=== PATIENT | male | born 1965 | race Caucasian/White ===

== ENCOUNTER 2016-06-12 14:26 | Emergency (ER) | payer MEDICAID, OTHER ==
[~2016-06-12] VITALS: Ht 182.9 cm; Wt 104.5 kg
[2016-06-12 14:33] VITALS: BP 152/89; PULSE 91; RESP 16; O2SAT 99
--- NOTE | 2016-06-12 19:26 | ED.REPORT ---
HPI-Psychiatric Illness Date of Service Jun 12, 2016 ED Provider: Rahul Escobedo MD 50 year old male with a history of depression presents to the ER due to suicidal ideation with a plan to kill himself by overdose or with a knife/ sword. He states that he has been having suicidal thoughts for the past several months, worsening over the past few weeks, but that he has been severely depressed for the past year and a half due to the loss of his therapy dog, the loss of his job, and homelessness. Patient also reports having trust issues with the people in his life because they "always have ulterior motives". In the past he has had suicidal ideations, at which time he was seen here then referred to crisis respite. Patient denies history of suicidal attempt, and current alcohol use, though he admits to THC use on a limited basis. 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 Recently he has had "the flu", cough, sneezing, and diarrhea with brief episode of bright red blood. No PCP. Nursing Notes Stated Complaint: SUICIDAL Chief Complaint: Psychiatric Complaint Nursing Notes Reviewed: Yes Allergies: Coded Allergies: Penicillins (Unverified Allergy, Severe, Hallucinations, 04/22/15) General Time Seen by MD: 19:22 Chief Complaint Suicidal ideation Hx Obtained From: Patient Arrived By: Walk-in Onset Occurred: More than a week ago... ("several months") Associated with: Reports: Depression Related History: Reports: Alcohol abuse, Depression, Denies: Prior suicide attempt(s) Risk-Psychiatric Illness Suicide Risk Stratification Suicide Risk Factors - Adult: No: Alcohol use, Previous attempt RF Statements: Risk factors reviewed Past Medical History Past Medical History Reports: Hypertension Reports: Depression Past Surgical History Denies Smoking History Unknown if Ever Smoker Social History Alcohol Use: In recovery Drug Use: THC Ambulatory Status Independent Review of Systems Psychiatric: Reports: Depression, Suicidal ideation, Denies: Change mental status, Confusion, Hallucinations, auditory, Hallucinations, visual, Homicidal ideation Complete sys rev & neg: except as marked. Physical Exam Initial Vital Signs Vital Signs (First) Date Time Temp Pulse Resp B/P Pulse Ox O2 Delivery O2 Flow Rate FiO2 06/12/16 14:33 36.4 91 16 152/89 99 Room Air Initial VS: Reviewed Head / Eyes: Atraumatic, Normocephalic Neck: Supple, Non-tender, Full range of motion Respiratory: Breath sounds normal, Clear to auscultation, No respiratory distress Cardiovascular: Regular rate & rhythm, Heart sounds normal, Intact distal pulses Abdomen / GI: Soft, Non-tender, No guarding, No rebound, No distention Extremities: Vascular intact, Neuro intact, No swelling, No tenderness Skin: Warm, Dry, No cyanosis General/Constitutional: Awake, Alert, Well developed, Well nourished Neurologic: Oriented X3, Speech NL, No motor deficits, No sensory deficits, Memory NL Psychiatric: Not homicidal, Cognitive function NL Abnormal Thinking / Perception: Positive: Suicidal, with plan Interpretation & Diagnostics Lab Results Interpretation Result Diagram: 06/12/16202106/12/162021 Test 06/12/16 20:22 White Blood Count 8.5th/mm3 (3.8-10.1) Red Blood Count 5.18mil/mm3 (4.40-5.80) Hemoglobin 15.0g/dL (13.8-17.2) Hematocrit 44.7% (41.0-50.0) Mean Corpuscular Volume 86.3fL (81-100) Mean Corpuscular Hemoglobin 29.0pg (27.0-35.0) Mean Corpuscular Hemoglobin Concent 33.6% (32.0-37.0) Red Cell Distribution Width 12.9% (12.3-15.4) Platelet Count 227bil/L (150-400) Neutrophils (%) (Auto) 54.8% (40-74) Lymphocytes (%) (Auto) 35.2% (14-46) Monocytes (%) (Auto) 8.0% (4-12) Eosinophils (%) (Auto) 1.4% (0-5) Basophils (%) (Auto) 0.5% (0-3) Sodium Level 141mEq/L (134-144) Potassium Level 3.5mEq/L (3.5-5.2) Chloride Level 107mEq/L (97-108) Carbon Dioxide Level 22mmol/L (18-29) Blood Urea Nitrogen 20mg/dL (6-24) Creatinine 0.99mg/dL (0.76-1.27) Estimat Glomerular Filtration Rate 86mL/min (>59) Glucose Level 120mg/dL (60-99) Calcium Level 8.5mg/dL (8.5-10.1) Total Bilirubin 0.2mg/dL (0.0-1.2) Aspartate Amino Transf (AST/SGOT) 21U/L (0-50) Alanine Aminotransferase (ALT/SGPT) 18U/L (0-44) Alkaline Phosphatase 68U/L (25-150) Total Protein 5.9g/dL (6.4-8.4) Albumin 3.7g/dL (3.4-5.0) Thyroid Stimulating Hormone (TSH) 2.950uIU/mL (0.450-4.500) Hold Barnard Top Tube Received (Received) Re-Eval/Medical Decision Med Decision/Clinical Course Crisis respite is full, our [facility] is also full. Patient does not feel safe to go home. He says that a next-day appointment is not sufficient that he does not feel like he will be safe leaving the department. We will keep him in the department overnight and workup again in the morning. Dr. Webster will assume care from midnight to 6 AM. Source of Hx: Old records Re-Evaluation/Progress #1: Time of Eval: 20:05 Re-Evaluation/Progress Note: I offered the patient a next-day appointment. He does not feel safe at home and is concerned that he will harm himself. Re-Evaluation/Progress #2: Time of Eval: 21:22 Re-Evaluation/Progress Note: Updated patient on the plan to board in the ER overnight. Patient is amenable to the plan and agrees not to harm himself. Discharge & Departure Impression: Primary Impression: Suicidal thoughts Additional Impression: Depression Depression Type: major depressive disorder Major depression recurrence: recurrent Active/Remission status: remission status unspecified Qualified Code: F33.9 - Major depressive disorder, recurrent, unspecified Discharge Condition All VS Reviewed: Yes Condition: Stable Referrals: NOPCP (PCP) Care Transferred to: [facility] Transferred at: 21:29 Nilesh Attestation Portions of this note were transcribed by Jermaine Hi. I, Dr. Escobedo, personally performed the history, physical exam and medical decision-making; I reviewed and confirmed the accuracy of the information in the transcribed note. Signed by: Nilesh Patel, 06/12/2016 and 2127 Rahul Escobedo MD Jun 12, 2016 19:26 JERMAINE HI Jun 12, 2016 19:35
[2016-06-12 19:50] VITALS: BP 169/100; PULSE 65; RESP 20; O2SAT 98
[2016-06-12] MEDS ORDERED: LORazepam 2 mg Tablet PO ONE (20:15)
[2016-06-12 20:31] LABS: BASOPHILS % (AUTO) 0.5 % (0-3); EOSINOPHILS % (AUTO) 1.4 % (0-5); Mean Corpuscular Volume 86.3 fL (81-100); NEUTROPHILS % (AUTO) 54.8 % (40-74); Platelet Count 227 bil/L (150-400)
[2016-06-13 02:32] VITALS: BP 152/101; PULSE 60; RESP 16; O2SAT 99
[2016-06-13 05:57] VITALS: BP 177/92; PULSE 72; RESP 18; O2SAT 98
[2016-06-13 15:30] VITALS: BP 148/83; PULSE 78; RESP 16; O2SAT 98
[2016-06-13 17:33] VITALS: BP 146/84; PULSE 75; RESP 14; O2SAT 96
[2016-06-13 17:44] VITALS: BP 146/84; PULSE 75; RESP 14; O2SAT 96
== END 2016-06-13 17:45 | disposition other institution (70) ==
LOC: SED 14:26
DX: F32.9 Major depressive disorder, single episode, unspecified (principal); R45.851 Suicidal ideations; Z88.0 Allergy status to penicillin

== ENCOUNTER 2016-06-19 14:26 | Emergency (ER) | payer OTHER ==
[~2016-06-19] VITALS: Ht 182.9 cm; Wt 102.3 kg
[2016-06-19 14:29] VITALS: BP 204/98; PULSE 97; RESP 18; O2SAT 99
[2016-06-19] MEDS ORDERED: CROM40SP NS (14:38)
--- NOTE | 2016-06-19 16:05 | ED.REPORT ---
HPI-Psychiatric Illness Date of Service Jun 19, 2016 ED Provider: Hellen Marie History of Present Illness: going to crisis center today has been cleared by phone. recently released from [facility] yesterday. Homeless Nursing Notes Stated Complaint: DEPRESSION, SUICIDAL Chief Complaint: Psychiatric Complaint Nursing Notes Reviewed: Yes Allergies: Coded Allergies: Penicillins (Unverified Allergy, Severe, Hallucinations, 06/19/16) Miscellaneous Medications Cromolyn Sodium (Nasal Allergy [place]) 13 Ml [place].pump 13 ML NS General Time Seen by MD: 15:54 Chief Complaint Other (homeless) Hx Obtained From: Patient Symptom Duration: Since onset Risk-Psychiatric Illness Suicide Risk Stratification Suicide Risk Factors - Adult: : Close associate suicide (friend comminted suicide about 4 years ago): Previous attempt (20 years ago, per his report had a gun in his mouth but could not pull the trigger): Substance abuse (THC was drug of choice, hx of crank and meth use but not recent per his report. )No: Access to firearms, Alcohol use, Family Hx of Suicide, Prior psych admission RF Statements: Risk factors reviewed Past Medical History Past Medical History Reports: Hypertension Reports: Depression Past Surgical History Denies Smoking History Unknown if Ever Smoker Social History Alcohol Use: In recovery Drug Use: THC Other Social History: Homeless Ambulatory Status Independent Review of Systems Basic Review of Systems Eyes: Vision NL, No discharge Allergy / Immune: No allergy Physical Exam Physical Exam Notes: when examined, patient is in chair 2 visiting with his neighbor, reporting "the lady next cheered him up" denies SI at this time Initial Vital Signs Vital Signs (First) Date Time Temp Pulse Resp B/P Pulse Ox O2 Delivery O2 Flow Rate FiO2 06/19/16 14:29 36.4 97 18 204/98 99 Room Air Initial VS: Reviewed, Vital signs abnormal Head / Eyes: Atraumatic, Normocephalic, PERRL ENT: Mucous membranes moist, Conjunctiva normal, No scleral icterus Neck: Supple, Non-tender, Full range of motion Respiratory: Breath sounds normal, Clear to auscultation, No respiratory distress Cardiovascular: Regular rate & rhythm, Heart sounds normal, Intact distal pulses Abdomen / GI: Soft, Non-tender, No guarding, No rebound, No distention Back: No CVA tenderness Lymphatic: No lymphadenopathy Extremities: Vascular intact, Neuro intact, No swelling, No tenderness Skin: Warm, Dry, No cyanosis General/Constitutional: Awake, Alert, No acute distress, Well appearing, Well developed, Well hydrated, Well nourished, Cooperative, Not toxic appearing Neurologic: Oriented X3, Speech NL, No motor deficits Psychiatric: Affect NL, Mood NL, Not suicidal Head / Eyes: Atraumatic, Normocephalic, PERRL, EOMI ENT: Atraumatic, Airway patent, Mucous membranes moist, Pharynx NL Respiratory / Chest: Atraumatic, Breath sounds NL, Breath sounds = bilat, No respiratory distress Cardiovascular: Heart rate NL, Regular rhythm, Heart sounds NL Abdomen: Atraumatic, Soft, Non-tender Interpretation & Diagnostics Lab Results Interpretation Test 06/19/16 15:25 Hold Urine Received (Received) Re-Eval/Medical Decision Med Decision/Clinical Course 50 year old male presents to the ER for homelessness. [facility] but not till 1 am. Does not take anything for his HTN. Provided metroprolol 50 mg, blood pressure has come down. Will provide script for same. Patient has been provided dinner and is awaiting transport. Care turned over to Dr. Webster. Discharge & Departure Impression: Primary Impression: Acute situational disturbance Additional Impression: High blood pressure Hypertension type: essential hypertension Additional Instructions: You have been accepted at Crisis [facility]. They will take you at 1 am. Your blood pressure has come down nicely with the blood pressure medication . A prescription has been provided for you. Please work on getting into housing and establishing in primary care. Referrals: [facility] EDSupervising Provider for APC: Prateek Cotto MD copies to: [facility] Hellen Marie Jun 19, 2016 16:05
[2016-06-19 17:18] VITALS: BP 173/102; PULSE 74; RESP 16; O2SAT 99
[2016-06-19 18:59] VITALS: BP 159/86; PULSE 60; RESP 14; O2SAT 96
[2016-06-20 00:31] VITALS: BP 138/87; PULSE 58; RESP 18; O2SAT 99
== END 2016-06-20 00:50 | disposition home or self-care (01) ==
LOC: SED 14:26
DX: F43.0 Acute stress reaction (principal); I10 Essential (primary) hypertension; Z59.0 Homelessness; Z88.0 Allergy status to penicillin

== ENCOUNTER 2016-07-11 14:56 | Inpatient (IN) | payer MEDICAID, OTHER ==
[~2016-07-11] VITALS: Ht 182.9 cm; Wt 104.5 kg
[~2016-07-11 14:56] MED LIST: CROM40SP NS
[2016-07-11 15:00] VITALS: PULSE 87; RESP 16; O2SAT 97
--- NOTE | 2016-07-11 16:07 | ED.REPORT ---
HPI-Psychiatric Illness Date of Service Jul 11, 2016 ED Provider: Chino Murillo Patient is a 50 year old male who presents to the ED complaining of suicidal ideation. He states that he is "tired of trying" and "would like to just ". He has no further complaints at this time. He denies homicidal ideations, hallucinations, or any other symptoms. Nursing Notes Stated Complaint: DEPRESSED Chief Complaint: Psychiatric Complaint Nursing Notes Reviewed: Yes Allergies: Coded Allergies: Penicillins (Unverified Allergy, Severe, Hallucinations, 07/11/16) Miscellaneous Medications Cromolyn Sodium (Nasal Allergy [place]) 13 Ml [place].pump 13 ML NS General Time Seen by MD: 16:07 Chief Complaint Suicidal ideation Hx Obtained From: Patient Arrived By: Walk-in Risk-Psychiatric Illness Suicide Risk Stratification Suicide Risk Factors - Adult: : Substance abuseNo: Alcohol use RF Statements: Risk factors reviewed Past Medical History Past Medical History Reports: Hypertension Reports: Depression Past Surgical History Denies Smoking History Unknown if Ever Smoker Social History Alcohol Use: In recovery Drug Use: THC Other Social History: Smokeless tobacco, Homeless Ambulatory Status Independent Review of Systems Psychiatric: Reports: Depression, Suicidal ideation, Denies: Hallucinations, auditory, Hallucinations, visual, Homicidal ideation Complete sys rev & neg: except as marked. Physical Exam Initial Vital Signs Vital Signs (First) Date Time Temp Pulse Resp B/P Pulse Ox O2 Delivery O2 Flow Rate FiO2 07/11/16 15:00 36.0 87 16 97 Room Air 07/11/16 20:56 133/61 Initial VS: Reviewed Head / Eyes: Atraumatic, Normocephalic Neck: Full range of motion Respiratory: No respiratory distress Cardiovascular: Regular rate & rhythm, Heart sounds normal Abdomen / GI: Soft, Non-tender Skin: Warm, Dry General/Constitutional: Awake, Alert, Well developed Neurologic: Oriented X3, Speech NL Psychiatric: Not homicidal Abnormal Thinking / Perception: Positive: Suicidal, no plan Jittery Interpretation & Diagnostics Lab Results Interpretation Result Diagram: 07/11/16 1633 07/11/16 1633 Test 07/11/16 16:33 07/11/16 19:10 White Blood Count 5.2th/mm3 (3.8-10.1) Red Blood Count 4.45mil/mm3 (4.40-5.80) Hemoglobin 13.0g/dL (13.8-17.2) Hematocrit 39.1% (41.0-50.0) Mean Corpuscular Volume 87.9fL (81-100) Mean Corpuscular Hemoglobin 29.2pg (27.0-35.0) Mean Corpuscular Hemoglobin Concent 33.2% (32.0-37.0) Red Cell Distribution Width 13.5% (12.3-15.4) Platelet Count 181bil/L (150-400) Neutrophils (%) (Auto) 65.2% (40-74) Lymphocytes (%) (Auto) 19.8% (14-46) Monocytes (%) (Auto) 12.1% (4-12) Eosinophils (%) (Auto) 2.5% (0-5) Basophils (%) (Auto) 0.2% (0-3) Sodium Level 136mEq/L (134-144) Potassium Level 3.6mEq/L (3.5-5.2) Chloride Level 99mEq/L (97-108) Carbon Dioxide Level 22mmol/L (18-29) Blood Urea Nitrogen 17mg/dL (6-24) Creatinine 0.98mg/dL (0.76-1.27) Estimat Glomerular Filtration Rate 87mL/min (>59) Glucose Level 131mg/dL (60-99) Calcium Level 8.4mg/dL (8.5-10.1) Total Bilirubin 0.4mg/dL (0.0-1.2) Aspartate Amino Transf (AST/SGOT) 27U/L (0-50) Alanine Aminotransferase (ALT/SGPT) 26U/L (0-44) Alkaline Phosphatase 63U/L (25-150) Total Protein 5.9g/dL (6.4-8.4) Albumin 3.4g/dL (3.4-5.0) Thyroid Stimulating Hormone (TSH) 0.863uIU/mL (0.450-4.500) Hold Barnard Top Tube Received (Received) Hold Urine Received (Received) Lab Results Interpretation: Urine tox. positive for THC and meth. Re-Eval/Medical Decision Med Decision/Clinical Course Social work recommends that we hold patient overnight and evaluate in the morning. 23:28: Mr. baker is resting comfortably. Irap-ea-tmkg evaluation completed. Care will be endorsed to Dr. Peters. Our hospital social worker will reevaluate him in the morning and determine if placement as needed or if this is psychiatric symptoms are related to his methamphetamine abuse. Discharge & Departure Shift Change Sign-Out Patient Care Transferred: Yes Discussed Complaint(s): Yes Response to Therapy: Improved Additonal Information: Transfer of care to Dr. Peters at 0000 Impression: Primary Impression: Methamphetamine abuse Additional Impression: Acute situational disturbance Referrals: NOPCP (PCP) Care Transferred to: Dr. Peters Care Transferred at: 00:00 Scribe Attestation Portions of this note were transcribed by Zakiya Dowell. I, Dr. Murillo personally performed the history, physical exam and medical decision-making; I reviewed and confirmed the accuracy of the information in the transcribed note. Signed by: Zakiya Dowell 07/12/16, 0000 Chino Murillo DO Jul 11, 2016 16:07 ZAKIYA DOWELL Jul 11, 2016 17:33
[2016-07-11 16:57] LABS: BASOPHILS % (AUTO) 0.2 % (0-3); EOSINOPHILS % (AUTO) 2.5 % (0-5); MONOCYTES % (AUTO) 12.1 % (4-12); Mean Corpuscular Hemoglobin 29.2 pg (27.0-35.0); Mean Corpuscular Volume 87.9 fL (81-100); NEUTROPHILS % (AUTO) 65.2 % (40-74); Platelet Count 181 bil/L (150-400)
[2016-07-11 20:56] VITALS: BP 133/61; PULSE 95; RESP 20; O2SAT 96
[2016-07-12 06:35] VITALS: BP 116/72; PULSE 84; RESP 18; O2SAT 97
[2016-07-12 13:06] VITALS: BP 149/81; PULSE 79; O2SAT 98
[2016-07-12] MEDS ORDERED: Alum-Mag Hydrox-Simeth 30 mL Suspension PO PRN ×2 (14:05→20:05)
[2016-07-12] MEDS ORDERED: Ondansetron 2 mg/mL 2 mL Inj IVPUSH PRN (14:05)
--- NOTE | 2016-07-12 16:48 | NUR ---
[id number]. nurs. Admit note. 50 y.o. male pt admitted to [facility] [place] [facility] ED at 1436. Pt stating greatest concern is "there's someone out there trying to mess with me, and no one believes me, probably be waiting for me when I get out of here, this has been going on for 61/2 yrs and no one believes me, tired of going on like this I would rather be " Pt reports has no social support ,not talking to 2 brothers the last of family. Pt reports cannot return to prev derelict housing with rats and mould and has been trying to sleep in corners of buildings and has bruises and scrapes from falling down when falls asleep. Pt reports depression of 10/10 and risk of making SA 8-10/10 if discharged. Pt states living on food stamps and little earnings. Pt states using MJ weekly and used meth once in last 11/2 yrs. Pt reports has never actually encountered "enemies" that have ruined and continue to ruin his life but firmly convinced that they are real. Pt denies hallucinations. Pt seeking safety and rest unable to identify exactly what he hopes to gain from hospitalization except to be stronger when leaves to deal with enemies. 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 in admit process. Pt reports meds from [facility] in [place] and HTN med from [facility].
--- NOTE | 2016-07-12 18:21 | NUR ---
S Day Shift Pt admitted to the unit at approx 14:36. Pt completed the admission process without incident. Pt acclimated to the unit without incident, preferring to remain in his room for the majority of the shift. Pt is appropriate with staff and peers when active on the unit, but is not social. Pt attended dinner in the evening and ate approx 100% of meal.
[2016-07-12] MEDS ORDERED: METO50TA3 PO (18:43)
[2016-07-12] MEDS ORDERED: Magnesium Hydroxide 10 mL Oral Concentration PO PRN (20:05)
[2016-07-12] MEDS ORDERED: LORazepam 1 mg Tablet PO PRN (20:05)
--- NOTE | 2016-07-13 05:21 | NUR ---
nursing, nights, 11-7 s/o- has appeared to sleep after 1730 during q 15 minute assessments. a- no apparent distress. p- monitor behavior/emotional state, quality, times and amount of sleep, use and effect of medication. wyatt
[2016-07-13 10:17] VITALS: BP 134/85; PULSE 79; RESP 16
--- NOTE | 2016-07-13 13:11 | NUR ---
Nursing Day Shift- S/O- Pt. appeared asleep at the start of the day shift. He jonatan briefly and eat 100%. He appeared flat and sullen, then returned to bed. He has appeared asleep other then getting up for lunch. A- Catching up on lost sleep during period of homelessness. Methamphetamine after affects. P- Monitor and evaluate when rested. Cont. BHTP.
[2016-07-13] MEDS ORDERED: CROMOLYN SODIUM NOSTRIL SCH (13:25)
--- NOTE | 2016-07-13 14:17 | HP ---
[address] [address] HISTORY AND PHYSICAL PATIENT: ROGERIO CORNEJO : 1965 MR#: [id number] ADMIT: 07/12/2016 JOB ID: [id number] IDENTIFICATION OF PATIENT: The patient is a 50-year-old male admitted through the emergency department with significant increasing factors of depression and suicidal ideation. He reportedly has also had significant concerns of paranoia with positive u. tox testing for methamphetamine and THC. CHIEF COMPLAINT: "I am tired of living this way, I am tired of having to start over and over and over." HISTORY OF PRESENT ILLNESS: As stated above, the patient is a 50-year-old male who reportedly was admitted through the emergency department with significant suicidal ideation with intent and plan to overdose. The patient reportedly tested positive for urine drug screen for methamphetamine and THC and was allowed to sober up overnight. Reportedly, the patient, however, identified that he has not used methamphetamine knowingly over the past year to year and a half and that his last drink of alcohol was greater than five years. He would not elaborate on his usage of marijuana. In meeting with the patient, he was quite tearful, distraught. Indicated that he is currently homeless, living in a camper in [place]. He indicates that there are many rats in his home that basically will crawl all over him when he is sleeping. He identified that he has not showered for many days upon weeks and that he reportedly was recently hired by a [employer] and had significant negative interactions with his boss and was fired. The patient reports he is having significant difficulties with feelings of hopelessness, worthlessness, indicating that he might as well . He reportedly stated to the emergency department nephrology social worker that he wanted a lobotomy. He reports that he was recently seen by a free clinic, [facility] in [place], and he was initiated on medication. He reports that he has a child welfare caseworker, identified as Alma. In reviewing his factors of depression, he openly admitted to feelings of anergia, anhedonia, delays of concentration, limited sleep, decreased appetite, symptoms of suicidal ideation with intent and plan. He also has significant paranoia, questionable delusional presentation on approach. PAST MEDICAL HISTORY: Substantial for allergy to PENICILLIN. His current medications include: 1. Metoprolol 50 mg b.i.d. 2. Cromolyn sodium nasal spray. 3. He also indicated that he was started on antidepressant but is unaware of the name. He denies any recent history of surgeries or fractures. Other medical history was reviewed through the emergency department and I agree with findings. PAST PSYCHIATRIC HISTORY: Substantial for initiation of services with [facility]. He does have a child welfare caseworker, identified as Alma. He was also initiated on antidepressant but is unaware of the name of the medication. He denies any prior history of psychiatric involvement. Denies any history of chemical dependency treatment. SOCIAL HISTORY: Currently, the patient is living independently. He denies any previous marriage, no children. He reportedly was born and raised in [place] and attended high school up until the 11th grade and dropped out. He pursued no GED or followup education at that time. FAMILY HISTORY: Negative for mental health or chemical dependency issues. DEVELOPMENT HISTORY: As noted above. MENTAL STATUS EXAMINATION: General appearance: The patient is dressed in scrub attire. He is malodorous and apologizes for such. His speech is of normal tone, frequency, and volume. His mood is depressed. His affect is congruent. His thought process shows no evidence of racing thoughts, flight of ideas, loose or disconnected thinking. Thought content: He denied any evidence of expressed homicidal ideation. He does have the above suicidal ideation with intent and plan of taking an overdose. He denies any active hallucinations, but does appear to be quite delusional in reference to his recent firing from his boss at the [employer]. He was alert, oriented to time and place. Attention and concentration intact. Memory intact in the short term, intermediate, recent. Insight and judgment are poor. IMPRESSIONS: [place] I. 1. Major depressive disorder with psychotic features. 2. Methamphetamine use disorder. 3. Cannabis use disorder, [place] II. Deferred. [place] III. History of hypertension [place] IV. Stressors are noted for economic difficulties, status of homelessness, limited support system. [place] V. Global Assessment of Functioning current 30. PLAN: 1. Recommendations for continuation of metoprolol and nasal spray. 2. Clarification of antidepressant initiated through [facility]. 3. Continuation of hospitalization with clarification of SHONA status.
--- NOTE | 2016-07-13 17:55 | NUR ---
[facility] Day Shift Pt maintained behavioral control throughout the shift. Pt affect appears flat. Pt spends the majority of the shift resting/sleeping in his room, only entering the dining room to attend meals and inquire about medication. Pt is appropriate with staff and peers when active on the unit, but is not social. Pt did not attend community meeting in the AM. Pt attended all meals and ate approx 100% of all meals.
--- NOTE | 2016-07-13 23:08 | NUR ---
Nurses Note Evening Patient has been pleasant upon approach with a blunted affect and depressed mood. His thoughts were clear,organized and reality based however superficial. He c/o cold symptoms and sinus problems,fluids encouraged and nasal spray ordered for am. Will encourage verbalization of thoughts and feelings with improved insight and coping skills. Addendum: 07/13/16 at 2317 by ELOISE CHIANG RN Amended: Links added.
--- NOTE | 2016-07-14 05:32 | NUR ---
nursing, nights, 11-7 s/o- has appeared to sleep after 2129 during q 15 minute assessments. a- no apparent distress. p- monitor behavior/emotional state, quality, times and amount of sleep, use and effect of medication. wyatt
[2016-07-14] MEDS: Fluticasone 0.05% 15 Spray/2 Gm 16 Gm Nasal Spray NASAL SCH (09:30)
[2016-07-14 11:44] VITALS: BP 138/91; PULSE 58; RESP 20
--- NOTE | 2016-07-14 15:14 | PCM.PNPSY ---
Subjective Date of Service Jul 14, 2016 Subjective I spent 30 minutes both reviewing his treatment plan and providing supportive and educational psychotherapy. I spent more than 50% of the time counseling the patient. I reviewed the treatment plan with the patient and discussed options available including the potential risks, benefits and side effects. Gera reports extreme dysphoria, hopelessness, helplessness and suicidal ideation with a plan to overdose. The Staff reports that he has been a split of sleeping in his room and is not participating well in one-to-one unit and group activities. He slept 8.75 hours. He is on no medications. I reviewed with him the different medication options. He appeared to understand the need for medications by the questions he asked during our discussion. Current Medications Current Medications Fluticasone Propionate 2 spray DAILY NASAL Last administered on 07/14/16 09:30; Admin Dose 2 SPRAY; Start 07/14/16 at 08:30 Metoprolol Tartrate 50 mg BID PO Last administered on 07/14/16 09:08; Admin Dose 50 MG; Start 07/12/16 at 20:30 Zolpidem Tartrate Start with 5 mg and may rep... HS PRN PO Last administered on 07/13/16 20:30; Admin Dose 5 MG; Start 07/12/16 at 20:05 Mental Status Exam Vital Signs Vital Signs Date Time Temp Pulse Resp B/P Pulse Ox O2 Delivery O2 Flow Rate FiO2 07/14/16 11:44 36.5 58 20 138/91 Appearance: Disheveled Attitude: Pleasant, Cooperative Behavior: No unusual behavior Affect: Well Modulated/Appropriate Mood: Dysthymic, Depressed Thought Process/Associations: Logical/Sequential, Goal Directed Speech Production: Normal Speech Rate: Normal Speech Articulation: Normal Thought Content: Appropriate Danger to Self/Suicidal Ideati: Active, Plan, Intent Danger to Others: None Delusions: Paranoid (Endorses) Consciousness: Somnolent, Lethargic Orientation: Person, Place, Date, Situation Memory: Grossly Intact Estimate Intellectual Function: Average Attention/Concentration & Cogn: Impaired Insight: Good Judgement: Limited Result Diagram: 07/11/16 1633 07/11/16 1633 Mental Health Plan The patient is a 50-year-old male admitted through the emergency department with significant increasing factors of depression and suicidal ideation. He reportedly has also had significant concerns of paranoia with positive u. tox testing for methamphetamine and THC. He was admitted with significant suicidal ideation with intent and plan to overdose. The patient reportedly tested positive for urine drug screen for methamphetamine and THC and was allowed to sober up overnight. Reportedly, the patient, however, identified that he has not used methamphetamine knowingly over the past year to year and a half and that his last drink of alcohol was greater than five years. Yesterday he was quite tearful, distraught. He is currently homeless, living in a camper in [place]. He indicates that there are many rats in his home and it is difficult to sleep. He identified that he has not showered for many days upon weeks and that he reportedly was recently hired by a [employer] and had significant negative interactions with his boss and was fired. The patient reports he is having significant difficulties with paranoia, feelings of hopelessness, worthlessness, indicating that he might as well . Today he stating he is feeling less suicidal but more exhausted and irritable. He was not started on medications at admission but is open to Treatment with an antidepressant and an antipsychotic. [place] I. 1. Major depressive disorder with psychotic features. 2. Methamphetamine use disorder. 3. Cannabis use disorder, [place] II. Deferred. [place] III. History of hypertension [place] IV. Stressors are noted for economic difficulties, status of homelessness, limited support system. [place] V. Global Assessment of Functioning current 35. Medications Treatments Patient is being provided with a high degree of safety through the structure and active adult engagement. We will focus on developing improved coping skills and identifying stressors that may have led to current episode. We will attempt to: Integrate into therapeutic groups, milieu and individual therapy. Maintain in a closely monitored and structured unit Provide low-stimulation environment Obtain collateral data to assist in treatment planning Assess degree of lability of affect and impulse control Complete safety plan Decrease frequency of relapse and need for re-hospitalization Denies thoughts of harm to self Establish a consistent sleep pattern Medication effective in stabilization of mood and/or thought process Reduce the risk of imminent harm to self and/or others by providing a safe environment Tolerates medication without side effects Patient will be on the following psychiatric medications: Patient on no medications since admission, will start combination of Cymbalta and Seroquel today Cymbalta 20 mg daily Seroquel 50 mg at bedtime Education: Educate patient about recreational drug use as an etiology Commend 90 NA meetings in days legal status: Voluntary Disposition: Homeless patient stays in a tent in the [facility]. Tex Toledo MD Jul 14, 2016 15:14
[2016-07-14] MEDS: DULoxetine 20 mg DR Capsule PO SCH (16:01)
--- NOTE | 2016-07-14 16:36 | NUR ---
Box Spring Maker./ c.m. S.:"I'm alright." O.: met with pt. to discuss his progress. He "didn't sleep well last night. I have problem sleeping for a long time. I have sleep apnea and I didn't have medications for sleep yesterday." Pt. said that he talked to MD about his sleeping issue and he would try a sleeping aid tonight. He spent most of the day in his room sleeping. He admitted having SI, but he said that he contracted for safety and he would keep his word. He denied HI. He couldn't describe his mood. He was wondering about a menu for dinner tonight but brief writer couldn't provide that information. A.: pt. is isolative, cooperative, quiet, sleeping a lot. P.: monitor behavior, encourage pt. to attend unit activities, provide safety; follow care plan.
--- NOTE | 2016-07-14 17:10 | NUR ---
Observations 0700 to 1900 Pt maintained behavioral control throughout the shift. During the morning pt was morose, teary, isolative. Did not attend morning groups. Pt set daily goal to 'make it through the day without hurting myself." However, after lunch pt affect changed and pt became significantly brighter. Pt showered and seemed to enjoy conversing with peers in Dining room in afternoon. Pt ate 90-100% of breakfast and lunch and was observed every 15 minutes as ordered.
--- NOTE | 2016-07-14 18:16 | NUR ---
NURS Note [id number] Orientation: x3 Mood: "I'm just so lonely." Rates depression at 10/10; denies anxiety. Affect: Negative, tearful. Thought Process/Content: Paranoid, negative delusions of persecution, "There are people out there trying to mess everything up for me." When questioned, pt could not identify who these people were. Endorses SI without a plan. Expressed concern that he may try to kill himself when he leaves the hospital. Denies HI. "My only reason to live in my dog Estrellita and I had to give her away to a friend. I dont know if I can fulfill my promise to her to get her back." Fco AH, VH. Some statements suggest that he may have a history of AH, "I was standing on a bridge looking at the water and at least 12 people told me to jump." Behavior: Spent much of shift in bed. Up in day room in late afternoon early evening. PRN/NURS Notes: Ate 100% of breakfast; 90%, lunch; dinner 90% (does not eat vegetables). Pt exhibits nasal congestion, sneezing, and reports "feel[ing] hot." Vital signs were within normal limits and stable. Evidence of diarrhea in toilet, pt unable to recall incident of diarrhea. Patient showered in PM.
[2016-07-15] MEDS: Fluticasone 0.05% 15 Spray/2 Gm 16 Gm Nasal Spray NASAL SCH (09:06)
[2016-07-15] MEDS: DULoxetine 20 mg DR Capsule PO SCH (09:06)
[2016-07-15 09:34] VITALS: BP 134/79; PULSE 62; RESP 16
--- NOTE | 2016-07-15 11:05 | PCM.PNPSY ---
Subjective Date of Service Jul 15, 2016 Subjective I spent 30 minutes both reviewing his treatment plan and providing supportive and educational psychotherapy. I spent more than 50% of the time counseling the patient. I reviewed the treatment plan with the patient and discussed options available including the potential risks, benefits and side effects. Gera reports a decrease in dysphoria, hopelessness, helplessness and now denies acute suicidal ideation with a plan to overdose. The Staff reports that he has been sleeping in his room and is not participating well in one-to-one unit and group activities. He slept 8.5 hours. Denied medication side effects and feels like these meds may help him re-create his work life. Current Medications Current Medications Duloxetine HCl 20 mg DAILY PO Last administered on 07/15/16 09:06; Admin Dose 20 MG; Start 07/14/16 at 15:50 Fluticasone Propionate 2 spray DAILY NASAL Last administered on 07/15/16 09:06; Admin Dose 2 SPRAY; Start 07/14/16 at 08:30 Quetiapine Fumarate 50 mg HS PO Last administered on 07/14/16 20:52; Admin Dose 50 MG; Start 07/14/16 at 21:00 Mental Status Exam Vital Signs Vital Signs Date Time Temp Pulse Resp B/P Pulse Ox O2 Delivery O2 Flow Rate FiO2 07/15/16 09:34 36.9 62 16 134/79 Appearance: Disheveled Attitude: Pleasant, Cooperative Behavior: No unusual behavior Affect: Well Modulated/Appropriate Mood: Dysthymic, Depressed Thought Process/Associations: Logical/Sequential, Goal Directed Speech Production: Normal Speech Rate: Normal Speech Articulation: Normal Thought Content: Appropriate Danger to Self/Suicidal Ideati: None Danger to Others: None Consciousness: Somnolent, Lethargic Orientation: Person, Place, Date, Situation Memory: Grossly Intact Estimate Intellectual Function: Average Attention/Concentration & Cogn: Impaired Insight: Good Judgement: Limited Result Diagram: 07/11/16 1633 07/11/16 1633 Mental Health Plan The patient is a 50-year-old male admitted through the emergency department with significant increasing factors of depression and suicidal ideation. He reportedly has also had significant concerns of paranoia with positive u. tox testing for methamphetamine and THC. He was admitted with significant suicidal ideation with intent and plan to overdose. The patient reportedly tested positive for urine drug screen for methamphetamine and THC and was allowed to sober up overnight. Reportedly, the patient, however, identified that he has not used methamphetamine knowingly over the past year to year and a half and that his last drink of alcohol was greater than five years. Yesterday he was quite tearful, distraught. He is currently homeless, living in a camper in [place]. He indicates that there are many rats in his home and it is difficult to sleep. He identified that he has not showered for many days upon weeks and that he reportedly was recently hired by a [employer] and had significant negative interactions with his boss and was fired. The patient reports he is having significant difficulties with paranoia, feelings of hopelessness, worthlessness, indicating that he might as well . Today he stating he no longer feels suicidal but continues to feel exhausted. He feels he is having a good initial response to medication started yesterday. [place] I. 1. Major depressive disorder with psychotic features. 2. Methamphetamine use disorder. 3. Cannabis use disorder, [place] II. Deferred. [place] III. History of hypertension [place] IV. Stressors are noted for economic difficulties, status of homelessness, limited support system. [place] V. Global Assessment of Functioning current 35. Medications Treatments Patient is being provided with a high degree of safety through the structure and active adult engagement. We will focus on developing improved coping skills and identifying stressors that may have led to current episode. We will attempt to: Integrate into therapeutic groups, milieu and individual therapy. Maintain in a closely monitored and structured unit Provide low-stimulation environment Obtain collateral data to assist in treatment planning Assess degree of lability of affect and impulse control Complete safety plan Decrease frequency of relapse and need for re-hospitalization Denies thoughts of harm to self Establish a consistent sleep pattern Medication effective in stabilization of mood and/or thought process Reduce the risk of imminent harm to self and/or others by providing a safe environment Tolerates medication without side effects Patient will be on the following psychiatric medications: Patient on no medications since admission, will start combination of Cymbalta and Seroquel today Cymbalta 20 mg daily Seroquel 50 mg at bedtime Education: Educate patient about recreational drug use as an etiology Commend 90 NA meetings in 90 days legal status: Voluntary Disposition: Homeless patient stays in a tent in the [facility]. Tex Toledo MD Jul 15, 2016 11:05 Tex Toledo MD Jul 15, 2016 11:05
--- NOTE | 2016-07-15 16:04 | NUR ---
Medical Engineer./ c.m. S.:"I'm tired. I'm trying not to think about discharge. I don't want to go back there." O.: met with pt. in his room. He was sleeping almost all day except for meals. He said that it was his coping skill "not to think about home situation." He is eating well. He slept "good" last night. He said that his new medication was helpful. He denied HI, "SI is still there but it's not that bad." He was able to contract for safety easily. He denied AH/VH or paranoid/delusional thoughts. He rated depression at 9/10 and denied anxiety at this time. [facility] [place] where he established his medical services. He didn't remember a name of his PCP. He was complaining about [facility] in [place]. He just started having a c.m. there but he doesn't have a psych. provider yet. He doesn't want to go back to his trailer due to it's condition. A.: pt. is isolative, quiet, very passive-avoidant, irritable at times. P.: monitor behavior, work on Safety plan, work on follow up; follow care plan.
--- NOTE | 2016-07-15 18:31 | NUR ---
NURS Note: S/O Pt spent much of day isolated in room. Stated, "I think whatever the doc gave me for sleep last night knocked me out . . . last night and today." Reports fears about returning home r/t condition of house and isolation. Pt continues to exhibit upper respiatory symptoms -- sneezing, blowing nose, congestion. Pt stated that he feels that these symptoms are improving. A Pt continue to isolate despite desire for companionship and human connection. P Continue with medications and behavioral plan. Encourage socialization.
--- NOTE | 2016-07-15 18:43 | NUR ---
Observations 0900 to 2130 Pt affect and mood was flat, sullen, isolative and guarded. Pt eye contact and speech was poor. Pt was in his room most of the shift, coming out only for meals. Pt ate 100% of her meals. Pt ate snack. Pt maintained behavior throughout the shift. Pt refused to attend group and unit activities. Pt attended community meeting briefly and set daily goal. Pt was unsocial with staff and peers. Pt was pleasant, polite and cooperative. Pt was offered a shower but he declined. Pt was observed every 15 minutes throughout the shift as ordered.
--- NOTE | 2016-07-16 01:33 | NUR ---
Observations 1900 to 0700 Pt spent most of the evening in his room. Pt only came out to attend group. Pt went straight abck to his room and has remained there ever since. Pt first appeared asleep at 21:45 and was observed every 15 minutes through the night as directed.
--- NOTE | 2016-07-16 04:28 | NUR ---
Nursing Noc Pt isolative to his room most of the evening. He did attend wrap up group but then returned to his room. He did not participate in evening activities. He took his scheduled medication. Affect flat with minimal socializing with peers or staff. Responsive upon approach. He took his scheduled HS medication along with prn Ambien prior to bed. Medication effective he has remained asleep since 2144 with no noted distress or awakening per protocol checks. Over 6.5 hours of sleep.
[2016-07-16] MEDS: DULoxetine 20 mg DR Capsule PO SCH (08:52)
[2016-07-16] MEDS: Fluticasone 0.05% 15 Spray/2 Gm 16 Gm Nasal Spray NASAL SCH (08:52)
[2016-07-16 10:17] VITALS: BP 130/77; PULSE 60; RESP 16
--- NOTE | 2016-07-16 12:51 | NUR ---
Anxiety and depression P: Pt. was observed isolative/resting in room except during meals. Pt. reported anxiety level 6/10 and depression level 7/10. He stated he has little to no social support. I: Encouraged pt. to participate in group activities and learn effective coping skills. Offered pt. PRN anti-anxiety medications. E: Pt. stated, "No. I am already on anti-depression medication. I have more than I need. I don't want any more." S: Redirect pt. to focus on his safety plan. Continue to encourage pt. engagement with group activities.
--- NOTE | 2016-07-16 20:02 | PCM.PNPSY ---
Subjective Date of Service Jul 16, 2016 Subjective The patient reports that he is extremely tired today. He reports that he is frustrated as no matter where he goes or what job he may have, "enemies are always playing off my fears." He gives the example of people "being rude to me...Not sure who I can trust." He also lamented the dismal state of his living conditions with rats having gotten into his food cooler and crawling over his head at night. He reports that the rats are now savvy to his traps and avoid or foil them. The patient reports that he was feeling tired prior to the addition of duloxetine and reports no particular benefit from quetiapine. No other side effect noted. Sleep: 8.5 hours. Appetite: "alright" Suicidal and homicidal ideation: thoughts of hanging self on discharge. No thoughts of harm in hospital. No HI. Auditory hallucinations/Visual hallucinations: denies Other Psychotic Symptoms: paranoia as above Anxiety: 11/22 Depression: 10/22 Current Medications Current Medications Quetiapine Fumarate 50 mg HS PO Last administered on 07/15/16t 20:39; Admin Dose 50 MG; Start 07/14/16 at 21:00; Stop 07/16/16 at 15:15; Status DC Mental Status Exam Appearance: Unkept Attitude: Pleasant, Cooperative Behavior: No unusual behavior Affect: Well Modulated/Appropriate Mood: Dysthymic, Depressed Thought Process/Associations: Logical/Sequential, Goal Directed Speech Production: Normal Speech Rate: Normal Speech Articulation: Normal Thought Content: Negativistic Danger to Self/Suicidal Ideati: None (in hospital), Active, Plan (hang self on discharge), Intent Danger to Others: None Delusions: Paranoid (Endorses) Hallucinations: Auditory (Denies), Visual (Denies) Consciousness: Somnolent, Lethargic Orientation: Person, Place, Date, Situation Memory: Grossly Intact Estimate Intellectual Function: Average Attention/Concentration & Cogn: Impaired Insight: Good (to), Limited Judgement: Limited Result Diagram: 07/11/16 1633 07/11/16 1633 Mental Health Plan The patient is a 50-year-old male admitted through the emergency department on a voluntary basis with worsening depression and suicidal ideation. The patient also reported long-standing paranoid concerns that appear to be exacerbated by his depression. His urine was also positive on admission for the presence of methamphetamine and THC. The patient appears to be somnolent following evening quetiapine and worsened after duloxetine. Discussed potentially taking duloxetine at bedtime with trial dose this evening and reassess in am. Patient was agreeable to this plan. [place] I. 1. Major depressive disorder with psychotic features. 2. Methamphetamine use disorder. 3. Cannabis use disorder, [place] II. Rule out paranoid personality disorder [place] III. History of hypertension [place] IV. Stressors are noted for financial difficulties, homelessness, limited support system and coping skills. [place] V. Global Assessment of Functioning current 30. Medications Quetiapine 50mg nightly Duloxetine 20mg daily Treatments 1. The patient is admitted to the inpatient unit and will be provided a safe and secure environment. 2. The patient is reporting suicidal ideation on discharge, but continues to assert that he would not harm himself on the unit. He is still forward looking and agreeable to notify staff if symptoms worsen so at this time is not in need of a one-to-one at this time. 3. The patient is encouraged to participate with group and milieu activities. 4. The patient will be seen by the treatment team on a daily basis to assess symptoms, side effects and response to treatment. 5. Quetiapine will be discontinued. 6. Duloxetine will be added 20mg at bedtime and if sleeps better with less am drowsiness, will switch to nighttime dosing. 7. Patient has been referred to [facility]. 8. Anticipated length of stay is 5-7 days. Geo Jean-Baptiste MD Jul 16, 2016 20:02 Reduce the risk of imminent harm to self and/or others by providing a safe environment Tolerates medication without side effects Patient will be on the following psychiatric medications: Patient on no medications since admission, will start combination of Cymbalta and Seroquel today Cymbalta 20 mg daily Seroquel 50 mg at bedtime Education: Educate patient about recreational drug use as an etiology Commend 90 NA meetings in 90 days legal status: Voluntary Disposition: Homeless patient stays in a tent in the [facility]. Geo Jean-Baptiste MD Jul 16, 2016 20:02
[2016-07-16] MEDS ORDERED: DULoxetine 20 mg DR Capsule PO ONE (21:00)
--- NOTE | 2016-07-16 21:08 | NUR ---
Observations 0900 to 2130 Pt affect and mood was flat, sullen, isolative, anxious and guarded. Pt eye contact and speech was poor. Pt was in his room most of the shift, coming out only for meals. Pt ate 100% of his meals. Pt ate snack. Pt maintained behavior throughout the shift. Pt refused to attend group and unit activities. Pt attended community meeting briefly and set daily goal. Pt was unsocial with staff and peers. Pt was pleasant, polite and cooperative. Pt was offered a shower but he declined. Pt stated that he was worried about where he was going to go when he discharges. Pt was observed every 15 minutes throughout the shift as ordered.
--- NOTE | 2016-07-17 03:04 | NUR ---
Observations 1900 to 0700 Pt spent most of the evening in his room. Pt only came out to have a snack. Pt went straight back to his room and has remained there ever since. Pt first appeared asleep at 22:00 and was observed every 15 minutes through the night as directed.
--- NOTE | 2016-07-17 05:54 | NUR ---
Nursing Noc Pt reported not feeling well during the evening hours and was noted to be resting on his bed with a damp washcloth on his forehead. He did briefly get up for something to drink. He did not attend evening group or activities. He took scheduled medication without difficulty. He requested and received Ambien 5mg po prn @ 2112 with moderate effect. He was able to sleep from [id number]. At 0300 he requested and received a repeat of Ambien 5mg po prn with good results. He was able to fall back asleep shortly after and has remained asleep for the remainder of the morning with over 8 hours of sleep noted per protocol checks.
[2016-07-17] MEDS: Fluticasone 0.05% 15 Spray/2 Gm 16 Gm Nasal Spray NASAL SCH (08:51)
[2016-07-17] MEDS: DULoxetine 30 mg DR Capsule PO SCH (11:51)
--- NOTE | 2016-07-17 15:39 | NUR ---
Director Of Engineering./ c.m. S.:"Tired... I haven't been sleeping last night at all." O.: met with pt. and MD together in pt.'s room. He was resting/sleeping, but he agreed to talk. He complained about poor sleep last night. He denied SI/HI, denied AH/VH or paranoid/delusional thoughts today. He described his mood as "kind of in the middle". He rated depression at 6/10 and anxiety at 7/10. Spool Salvager spoke with Arjun Naranjo c.m. at [facility], about pt.'s potential housing. Arjun will come tomorrow morning to interview pt. Pt. was informed about that mtg. A.: pt. is cooperative, isolative, quiet, has a flat affect. P.: monitor behavior, mtg with al liang from [facility] in the morning, work on Safety plan and follow up; follow care plan.
--- NOTE | 2016-07-17 17:38 | NUR ---
Observations [id number] Pt was asleep upon start of shift and spent much of the morning in bed. He did attend Community Meeting and all meals, eating 100%. The remainder of the day he spent sleeping. He did attend a group in the afternoon regarding journaling practices, making some comments to another staff regarding his life. Pt stated "I'm homeless....they keep bringing me back and letting me go...I was on a bridge and everyone kept telling me to jump off...." It was reported by the A that witnessed this that the conversation was very pressured and intense. Pt spent the remainder of his afternoon in bed, aside from attending dinner in which he was observed being social. Pt was observed every 15 minutes of shift as directed.
--- NOTE | 2016-07-17 18:28 | NUR ---
NURS Note [id number] Mood: "I'm tired." Endorses depression 11/22, anxiety 10/22. Affect: Appropriate. At times, sad and tearful. Behavior: Pt participated in groups, up for meals and snack, otherwise in room. Thought Content/Process: "I don't have anyone. Sometimes I wonder if anyone would care or notice if I . When I was on the bridge, there must have been two dozen people in cars telling to jump." Endorses SI without a plan, able to contract for safety on the unit. Denies HI. Denies , . Pt has been more social with peers and staff. PRN/NURS Notes: Pts upper respiratory symptoms have improved since 07/15/2016.
[2016-07-17] MEDS: hydrOXYzine Pamoate 25 mg Capsule PO PRN (20:21)
--- NOTE | 2016-07-17 20:38 | PCM.PNPSY ---
Subjective Date of Service Jul 17, 2016 Subjective The patient reports that he did not experience stomach upset this morning. He reports that his mood is "5/10, in the middle." He reports that he did not sleep as well with duloxetine at bedtime. He is agreeable to taking duloxetine in the morning. The patient was agreeable to referral to [facility]. He denied other side effects or medical issues. Sleep: 8+ hours, broken. Appetite: "alright" Suicidal and homicidal ideation: denies Auditory hallucinations/Visual hallucinations: denies Other Psychotic Symptoms: still with paranoia but not discussing it. Anxiety: 10/22, yesterday 11/22 Depression: 09/22, yesterday 10/22 Current Medications Current Medications Duloxetine HCl 20 mg HS ONCE PO Last administered on 07/16/16 21:12; Admin Dose 20 MG; Start 07/16/16 at 21:00; Stop 07/16/16 at 21:01; Status DC Duloxetine HCl 30 mg DAILY PO Last administered on 07/17/16 11:51; Admin Dose 30 MG; Start 07/17/16 at 11:10 Mental Status Exam Appearance: Unkept Attitude: Pleasant, Cooperative Behavior: No unusual behavior Affect: Restricted Mood: Dysthymic Thought Process/Associations: Logical/Sequential, Goal Directed Speech Production: Normal Speech Rate: Normal Speech Articulation: Normal Thought Content: Negativistic Danger to Self/Suicidal Ideati: None Danger to Others: None Delusions: Paranoid (Endorses) Hallucinations: Auditory (Denies), Visual (Denies) Consciousness: Somnolent, Lethargic Orientation: Person, Place, Date, Situation Memory: Grossly Intact Estimate Intellectual Function: Average Attention/Concentration & Cogn: Impaired Insight: Good (to), Limited Judgement: Limited Result Diagram: 07/11/16 1633 07/11/16 1633 Mental Health Plan The patient is a 50-year-old male admitted through the emergency department on a voluntary basis with worsening depression and suicidal ideation. The patient also reported long-standing paranoid concerns that appear to be exacerbated by his depression. His urine was also positive on admission for the presence of methamphetamine and THC. The patient appears to be somnolent following evening quetiapine and worsened after duloxetine. Duloxetine at bedtime appears to have disrupted his sleep and so will be moved back to days. Given that the patient's paranoia appears related to personality disorder rather than primary psychosis, antipsychotic is not indicated at this time. [place] I. 1. Major depressive disorder with psychotic features. 2. Methamphetamine use disorder. 3. Cannabis use disorder, [place] II. Rule out paranoid personality disorder [place] III. History of hypertension [place] IV. Stressors are noted for financial difficulties, homelessness, limited support system and coping skills. [place] V. Global Assessment of Functioning current 30. Medications Duloxetine 20mg twice daily Treatments 1. The patient is admitted to the inpatient unit and will be provided a safe and secure environment. 2. The patient is denying suicidal ideation and asserts that he would not harm himself on the unit and is not in need of a one-to-one at this time. 3. The patient is encouraged to participate with group and milieu activities. 4. The patient will be seen by the treatment team on a daily basis to assess symptoms, side effects and response to treatment. 5. Given the potential interaction with metoprolol, will consolidate duloxetine as 30mg daily. 6. Patient has been referred to [facility]. 7. Anticipated length of stay is 5-7 days. Geo Jean-Baptiste MD Jul 17, 2016 20:38 8. Anticipated length of stay is 5-7 days. Geo Jean-Baptiste MD Jul 17, 2016 20:38
--- NOTE | 2016-07-18 05:50 | NUR ---
Nursing Noc Pt had no physical complaints this evening. He spent the evening out in the milieu engaged with his peers and participating in evening activities. He was noted to be smiling and laughing while watching television and visiting with his peers. Affect brighter with improved mood. Took scheduled medication along with Ambien 5mg po prn with good effect. Adequate sleep. He has remained asleep since 2229 with no noted distress or awakening per protocol checks. Total sleep 7.5+ hours.
[2016-07-18 08:00] VITALS: BP 122/78; PULSE 54; RESP 16
[2016-07-18] MEDS: DULoxetine 30 mg DR Capsule PO SCH (08:23)
[2016-07-18] MEDS: Fluticasone 0.05% 15 Spray/2 Gm 16 Gm Nasal Spray NASAL SCH (08:23)
--- NOTE | 2016-07-18 15:56 | NUR ---
Nursing Notes [id number] S: "really tired today, didn't get any sleep a couple nights ago" O: Pt is isolating to his room today. Only comes out during meal time, then when finished goes right back into room. Pt states his depression is a 7/10 and his anxiety is a 6/10. Pt states that he will be more willing to participate with group today. A: Pt is withdrawn, he is isolating into his room. Pt has flat affect. Pt currently has no suicidal ideations. He states that he is too tired today to have any SI thoughts. P: Monitor for safety and response to treatment. Follow plan of care for safety/response to treatment.
--- NOTE | 2016-07-18 18:01 | NUR ---
[facility] Day Shift Pt maintained behavioral control throughout the shift. Pt affect appears mostly flat, brighter when engaged with staff and peers. Pt spends the majority of the shift resting/sleeping in his room, but is more active and interactive than noted on previous shifts. Pt is appropriate with staff and peers when active on the unit Pt attended all meals and ate approx 100% of all meals.
--- NOTE | 2016-07-18 19:06 | NUR ---
Counseling/Regional Tanker Truck Driver: S: "I'm just sitting here meditating." O: Patient slept 7.5+ hours last night per staff. He denies S/I and H/I. He also denies auditory and visual hallucinations. Depression is 6-7/10 and anxiety was 6/10. Patient was screened for [facility] and there were no available beds. Patient will call again in the morning to check availability. A: Patient is cooperative, flat affect, improved, hopeful. P: Follow care plan, coordinate out-patient providers.
[2016-07-18] MEDS: hydrOXYzine Pamoate 25 mg Capsule PO PRN (20:45)
--- NOTE | 2016-07-18 21:35 | PCM.PNPSY ---
Subjective Date of Service Jul 18, 2016 Subjective The patient reports feeling "a little more tired than yesterday..body-alegria, I feel better mentally." Patient reports that he is waiting to hear back from [facility], but they reportedly are likely to take other client. He was agreeable to [facility] if no other bed available. The patient reports that he did not experience stomach upset this morning. He reports that his mood is "5/10." He denied other side effects or medical issues. Sleep: 7+ hours, "playing catch up." Appetite: "pretty good" Suicidal and homicidal ideation: denies SI today, but reports some passive yesterday. No plan or intent. Auditory hallucinations/Visual hallucinations: denies Other Psychotic Symptoms: still with paranoia but much reduced. Anxiety: 09/22 yesterday 10/22 Depression: -10/22 yesterday 09/22 Current Medications Current Medications Duloxetine HCl 30 mg DAILY PO Last administered on 07/18/16t 08:23; Admin Dose 30 MG; Start 07/17/16 at 11:10 Mental Status Exam Appearance: Unkept Attitude: Pleasant, Cooperative Behavior: No unusual behavior Affect: Restricted Mood: Dysthymic Thought Process/Associations: Logical/Sequential, Goal Directed Speech Production: Normal Speech Rate: Normal Speech Articulation: Normal Thought Content: Negativistic Danger to Self/Suicidal Ideati: None Danger to Others: None Delusions: Paranoid (Endorses, but improved) Hallucinations: Auditory (Denies), Visual (Denies) Consciousness: Somnolent, Lethargic Orientation: Person, Place, Date, Situation Memory: Grossly Intact Estimate Intellectual Function: Average Attention/Concentration & Cogn: Impaired Insight: Good (to), Limited Judgement: Limited Mental Health Plan The patient is a 50-year-old male admitted through the emergency department on a voluntary basis with worsening depression and suicidal ideation. The patient also reported long-standing paranoid concerns that appear to be exacerbated by his depression. His urine was also positive on admission for the presence of methamphetamine and THC. The patient appears to be somnolent following evening quetiapine and worsened after duloxetine. Duloxetine at bedtime appears to have disrupted his sleep and so will be moved back to days. Given that the patient's paranoia appears related to personality disorder rather than primary psychosis, antipsychotic is not indicated at this time. Patient reports responding positively to medication changes and is agreeable to discharge to [facility]. [place] I. 1. Major depressive disorder with psychotic features. 2. Methamphetamine use disorder. 3. Cannabis use disorder, [place] II. Rule out paranoid personality disorder [place] III. History of hypertension [place] IV. Stressors are noted for financial difficulties, homelessness, limited support system and coping skills. [place] V. Global Assessment of Functioning current 30. Medications Duloxetine 20mg twice daily Treatments 1. The patient is admitted to the inpatient unit and will be provided a safe and secure environment. 2. The patient is denying suicidal ideation and asserts that he would not harm himself on the unit and is not in need of a one-to-one at this time. 3. The patient is encouraged to participate with group and milieu activities. 4. The patient will be seen by the treatment team on a daily basis to assess symptoms, side effects and response to treatment. 5. Given the potential interaction with metoprolol, will consolidate duloxetine as 30mg daily. 6. Patient given contact information for [facility]. 7. Anticipated length of stay is 5-7 days. Geo Jean-Baptiste MD Jul 18, 2016 21:35
--- NOTE | 2016-07-19 03:04 | NUR ---
Nursing Ya Pt presents with bright affect, smiling and laughing while visiting and watching TV with his peers. Took scheduled medication without difficulty. No complaints made this evening. He received Ambien 5mg po prn for sleep with good effect. He was noted to be asleep since 2314. Will continue to monitor mood, behavior and sleep cycle through the night. Addendum: 07/19/16 at 0515 by NUNO TALBOT RN Total sleep 6+ hours.
[2016-07-19] MEDS: DULoxetine 30 mg DR Capsule PO SCH (07:56)
[2016-07-19] MEDS: Fluticasone 0.05% 15 Spray/2 Gm 16 Gm Nasal Spray NASAL SCH (07:56)
[2016-07-19 09:02] VITALS: BP 121/69; PULSE 57
--- NOTE | 2016-07-19 09:07 | NUR ---
Missing Persons Report: Four Horse Hitch Driver Caleb Foster from the [facility]'s office, phone number [phone], called at [phone] requesting information on a missing person that had been reported in [place] with the name Gera Fraga. Det. Foster faxed info on the report. Patient was alerted of report and gave permission to give details of his being a patient on this unit to the [facility]'s Office. Det. Foster was called at [phone] and told of patient's whereabouts.
--- NOTE | 2016-07-19 12:56 | PCM.PNPSY ---
Subjective Date of Service Jul 19, 2016 Subjective The patient reports that he is "not too bad" today and denies side effects, but heart rate is 57 today and 54 yesterday. Discussed holding PM dose of metoprolol and rechecking in the morning; patient agreeable. Patient called [facility] and spoke with Clarit[facility], not call back from them. He denied other side effects or medical issues. Sleep: 7.5+ hours Appetite: "okay" Suicidal and homicidal ideation: denies Auditory hallucinations/Visual hallucinations: denies Other Psychotic Symptoms: N/A Anxiety: 09/22, yesterday 09/22 Depression: 09/22, yesterday -10/22 Mental Status Exam Vital Signs Vital Signs Date Time Temp Pulse Resp B/P Pulse Ox O2 Delivery O2 Flow Rate FiO2 07/19/16 09:02 36.4 57 121/69 Appearance: Unkept Attitude: Pleasant, Cooperative Behavior: No unusual behavior Affect: Restricted Mood: Dysthymic Thought Process/Associations: Logical/Sequential, Goal Directed Speech Production: Normal Speech Rate: Normal Speech Articulation: Normal Thought Content: Negativistic Danger to Self/Suicidal Ideati: None Danger to Others: None Delusions: Paranoid (Denies, did not report today.) Hallucinations: Auditory (Denies), Visual (Denies) Consciousness: Somnolent, Lethargic Orientation: Person, Place, Date, Situation Memory: Grossly Intact Estimate Intellectual Function: Average Attention/Concentration & Cogn: Impaired Insight: Good (to), Limited Judgement: Limited Mental Health Plan The patient is a 50-year-old male admitted through the emergency department on a voluntary basis with worsening depression and suicidal ideation. The patient also reported long-standing paranoid concerns that appear to be exacerbated by his depression. His urine was also positive on admission for the presence of methamphetamine and THC. The patient appears to be somnolent following evening quetiapine and worsened after duloxetine. Duloxetine at bedtime appears to have disrupted his sleep and so will be moved back to days. Given that the patient's paranoia appears related to personality disorder rather than primary psychosis, antipsychotic is not indicated at this time. Patient reports responding positively to medication changes and is agreeable to discharge to [facility]. Patient has low pulse likely secondary to interaction with Cymbalta and will hold am dose to assess whether his pulse returns to normal. [place] I. 1. Major depressive disorder, recurrent with psychotic features. 2. Methamphetamine use disorder. 3. Cannabis use disorder, [place] II. Rule out paranoid personality disorder [place] III. History of hypertension [place] IV. Stressors are noted for financial difficulties, homelessness, limited support system and coping skills. [place] V. Global Assessment of Functioning current 35. Medications Duloxetine 20mg twice daily Treatments 1. The patient is admitted to the inpatient unit and will be provided a safe and secure environment. 2. The patient is denying suicidal ideation and asserts that he would not harm himself on the unit and is not in need of a one-to-one at this time. 3. The patient is encouraged to participate with group and milieu activities. 4. The patient will be seen by the treatment team on a daily basis to assess symptoms, side effects and response to treatment. 5. Given the potential interaction with metoprolol, will consolidate duloxetine as 30mg daily, hold pm metoprolol and assess in morning. 6. Patient given contact information for [facility]. 7. Anticipated length of stay is 5-7 days. Geo Jean-Baptiste MD Jul 19, 2016 12:56
--- NOTE | 2016-07-19 14:24 | NUR ---
Obs Dayshift Pt is polite upon approach, short, little to no engaging w/ peers, guarded, and not participating in groups or activities on the unit. Pt is only out of bed for meals, snacks and at times meds. Pt called [facility] times and stated that he could not get thru, and found out he was leaving messages on staff phones here at the Hospital. Pt did get thru w/ staff assistance and needs to call back this evening due to no beds. Pt has ok/poor ADL's, Good meals
--- NOTE | 2016-07-19 17:36 | NUR ---
Nursing Notes [id number] S Much better today O: Pt is more interactive today with staff and with group. Pt is smiling, asking appropriate questions. Pt has been [facility] into [facility] and will be going to transitional housing when a bed opens up. Pt states that his anxiety is a 4/10 and his depression is 6/10 A: Pt has flat affect. Pt currently has no suicidal ideations. Pt interacting with staff and other patients. P: Monitor for safety and response to treatment. Follow plan of care for safety/response to treatment.
--- NOTE | 2016-07-19 19:09 | NUR ---
Counseling/Pumper Gager Apprentice: S: "I would like to go to [facility] but I can't get through when I try to call them." O: Patient slept 7.5 hours last night per staff. He denies S/I and H/I. He also denies auditory and visual hallucinations. Depression is 6/10 and anxiety was 6/10. Patient was screened for [facility] and has been accepted for an available bed tomorrow night at 9:00pm. This service writer spoke with Nurse Cooper at [facility] and was given the authorization for the bed at [facility]. [facility] is requesting that the patient be given his night meds PRIOR to discharge tomorrow night at 9:00pm. A: Patient is cooperative, flat affect, improved, hopeful. P: Follow care plan, coordinate out-patient providers and [facility].
[2016-07-19] MEDS: hydrOXYzine Pamoate 25 mg Capsule PO PRN (20:16)
--- NOTE | 2016-07-19 23:30 | NUR ---
Nurses Note Evening Patient remains upbeat and encouraged to be discharging to [facility] tomorrow at 9PM. He denies anxiety ,depression or feelings of self harm. Will encourage improved insight,coping skills and continued medication compliance with follow-up. Addendum: 07/19/16 at 2341 by ELOISE CHIANG RN Amended: Links added.
--- NOTE | 2016-07-20 05:09 | NUR ---
Nursing Noc Pt continues the same as previous nights engaged with evening activities, took scheduled medication along with sleep aid with good effect, social with both peers and staff. He was noted to be asleep by 2245 with no noted distress or awakening per protocol checks. Total sleep over 6 hours.
[2016-07-20] MEDS: DULoxetine 30 mg DR Capsule PO SCH (08:30)
[2016-07-20] MEDS: Fluticasone 0.05% 15 Spray/2 Gm 16 Gm Nasal Spray NASAL SCH (08:30)
--- NOTE | 2016-07-20 15:24 | NUR ---
Nursing Day Shift "I didn't sleep well last night". Patient has spent much of day in bed resting. Has been out to dining room for meals. Patient reports anxiety 5/10 and depression 4/10. Denies harmful thoughts or hallucinations. Cooperative with care and making needs known to staff.
--- NOTE | 2016-07-20 17:28 | PCM.DIMED ---
Discharge Instructions Date of Service Jul 20, 2016 Dates of Hospitalization Jul 12, 2016 at 13:37 Discharge Diagnosis Discharge Diagnosis [place] I. 1. Major depressive disorder, recurrent. 2. Methamphetamine use disorder. 3. Cannabis use disorder 4. Psychotic disorder, unspecified, resolved. [place] II. Provisional paranoid personality disorder [place] III. History of hypertension [place] IV. Stressors are noted for financial difficulties, homelessness, limited support system and coping skills. [place] V. Global Assessment of Functioning current 50. Medication Instructions Check your blood pressure at your local pharmacy or fire department on a routine basis (at least weekly). If your blood pressure is consistently over 130/80 let your primary provider know. Test Results CBC Test 07/11/16 16:33 White Blood Count 5.2th/mm3 (3.8-10.1) Red Blood Count 4.45mil/mm3 (4.40-5.80) Hemoglobin 13.0g/dL (13.8-17.2) Hematocrit 39.1% (41.0-50.0) Mean Corpuscular Volume 87.9fL (81-100) Mean Corpuscular Hemoglobin 29.2pg (27.0-35.0) Mean Corpuscular Hemoglobin Concent 33.2% (32.0-37.0) Red Cell Distribution Width 13.5% (12.3-15.4) Platelet Count 181bil/L (150-400) Neutrophils (%) (Auto) 65.2% (40-74) Lymphocytes (%) (Auto) 19.8% (14-46) Monocytes (%) (Auto) 12.1% (4-12) Eosinophils (%) (Auto) 2.5% (0-5) Basophils (%) (Auto) 0.2% (0-3) CMP Test 07/11/16 16:33 Sodium Level 136mEq/L Potassium Level 3.6mEq/L Chloride Level 99mEq/L Carbon Dioxide Level 22mmol/L Blood Urea Nitrogen 17mg/dL Creatinine 0.98mg/dL Estimat Glomerular Filtration Rate 87mL/min Glucose Level 131mg/dL Calcium Level 8.4mg/dL Total Bilirubin 0.4mg/dL Aspartate Amino Transf (AST/SGOT) 27U/L Alanine Aminotransferase (ALT/SGPT) 26U/L Alkaline Phosphatase 63U/L Total Protein 5.9g/dL Albumin 3.4g/dL Thyroid Stimulating Hormone (TSH) 0.863uIU/mL Hold [place] Top Tube Received Diet Heart Healthy Activity No restrictions Patient Instructions Should you have any thoughts of harming yourself or others, please call the crisis line, your provider, 911, or go to the nearest Emergency Department. Do not change or discontinue your medications without discussing with your provider. You have been given a prescription for 30 days supply of your medication Follow-up plan Psychiatric follow-up Fiscal Accounting Clerk Alma on 07/30/16 at 1:45 [id number]. ELIA King Brian E MD Jul 20, 2016 17:28
[2016-07-20] MEDS ORDERED: HYDR-3797 PO (17:34)
[2016-07-20] MEDS ORDERED: DULO30CA PO (17:34)
[2016-07-20] MEDS ORDERED: FLUT16SP NASAL (17:34)
[2016-07-20] MEDS ORDERED: METO25TA6 PO (17:34)
[2016-07-20] MEDS ORDERED: ZOLP10TA5 PO (17:34)
--- NOTE | 2016-07-20 17:48 | NUR ---
[facility] Day Shift Pt maintained behavioral control throughout the shift. Pt affect appears mostly flat, brighter when engaged with staff and peers. Pt spends the majority of the shift resting/sleeping in his room, but is more active and interactive than noted on previous shifts. Pt is appropriate with staff and peers when active on the unit Pt spends most of the afternoon preparing for DC in the evening. Pt attended all meals and ate approx 100% of all meals.
[2016-07-20 17:54] VITALS: BP 128/67; PULSE 59; RESP 16
--- NOTE | 2016-07-20 18:58 | NUR ---
Counseling/Detective Captain: S: "Thank you for coordinating with my outside immigration case worker." O: Patient slept 7.5 hours last night per staff. He denies S/I and H/I. He also denies auditory and visual hallucinations. Out-patient appointment: [facility] immigration case worker, 07/30/16 at 1:45pm. A: Patient is cooperative, flat affect, improved, hopeful. P: Follow care plan, coordinate out-patient providers and [facility].
--- NOTE | 2016-07-20 20:38 | NUR ---
DISCHARGE NOTE Pt. discharged from unit at 20:35 via cab to go to [facility] in [place]. He signed all of his paperwork and reported he felt safe and was ready to discharge. He discharged w/his belongings, and his home medication as well as hard copies of his prescriptions (which were also faxed to his pharmacy).
--- NOTE | 2016-07-22 15:34 | PCM.DC.MED ---
Discharge Summary Date of Service Jul 20, 2016 Dates of Hospitalization Date of Hospital Admission Jul 12, 2016 at 13:37 Date of Discharge: Jul 20, 2016 Providers: Admitting Physician: Tex Toledo MD Primary Care Physician: Benny Attending Physician: Tex Toledo MD Diagnosis at Time of Discharge Diagnosis at Time of Discharge [place] I. 1. Major depressive disorder, recurrent. 2. Methamphetamine use disorder. 3. Cannabis use disorder 4. Psychotic disorder, unspecified, resolved. [place] II. Provisional paranoid personality disorder [place] III. History of hypertension [place] IV. Stressors are noted for financial difficulties, homelessness, limited support system and coping skills. [place] V. Global Assessment of Functioning current 50. Brief History Per Dr. Earl Mariano history and physical from 07/13/2016: IDENTIFICATION OF PATIENT: The patient is a 50-year-old male admitted through the emergency department with significant increasing factors of depression and suicidal ideation. He reportedly has also had significant concerns of paranoia with positive u. tox testing for methamphetamine and THC. CHIEF COMPLAINT: "I am tired of living this way, I am tired of having to start over and over and over." HISTORY OF PRESENT ILLNESS: As stated above, the patient is a 50-year-old male who reportedly was admitted through the emergency department with significant suicidal ideation with intent and plan to overdose. The patient reportedly tested positive for urine drug screen for methamphetamine and THC and was allowed to sober up overnight. Reportedly, the patient, however, identified that he has not used methamphetamine knowingly over the past year to year and a half and that his last drink of alcohol was greater than five years. He would not elaborate on his usage of marijuana. In meeting with the patient, he was quite tearful, distraught. Indicated that he is currently homeless, living in a camper in [place]. He indicates that there are many rats in his home that basically will crawl all over him when he is sleeping. He identified that he has not showered for many days upon weeks and that he reportedly was recently hired by a [employer] and had significant negative interactions with his boss and was fired. The patient reports he is having significant difficulties with feelings of hopelessness, worthlessness, indicating that he might as well . He reportedly stated to the emergency department social sciences chair that he wanted a lobotomy. He reports that he was recently [facility] in [place], and he was initiated on medication. He reports that he has a pillowcase maker, identified as Alma. In reviewing his factors of depression, he openly admitted to feelings of anergia, anhedonia, delays of concentration, limited sleep, decreased appetite, symptoms of suicidal ideation with intent and plan. He also has significant paranoia, questionable delusional presentation on approach. Hospital Course The patient was initially placed on duloxetine 20 mg nightly with quetiapine 50 mg nightly for paranoia. On further assessment, the patients paranoia appeared to be more consistent with paranoid personality disorder than a primary thought disorder and so quetiapine was discontinued without adverse effect. The patients paranoia improved somewhat while hospitalized despite discontinuation of the antipsychotic. Duloxetine was increased to 30 mg daily. Due to the interaction with cytochrome 2 D6, the patients pulse decreased and so metoprolol was decreased to 25 mg twice daily. During the course of his stay his suicidal thoughts resolved and his depression improved. He denied side effects to medications. At the time of discharge, the patient was reporting his mood was all right. Sleep was reported as "tossing and turning," 7.5 hours per staff and appetite was reported as "all right." His anxiety was reported as 6-7/10 and depression as 6/10. He denied auditory or visual hallucinations and any thought, intent or plan of hurting himself or others. He denied medication side effects. The patient appeared to have chronic paranoia regarding his interactions with others but no specific plots or concerns. Exam Vital Signs (Last) Date Time Temp Pulse Resp B/P Pulse Ox O2 Delivery O2 Flow Rate FiO2 07/20/16 17:54 36.6 59 16 128/67 Exam Discharge Mental Status Exam Appearance: Unkept Attitude: Pleasant, Cooperative Behavior: No unusual behavior Affect: Restricted Mood: "alright" Thought Process/Associations: Logical/Sequential, Goal Directed Speech Production: Normal Speech Rate: Normal Speech Articulation: Normal Thought Content: optimistic Danger to Self/Suicidal Ideation: None Danger to Others: None Delusions: Chronic pervasive paranoia/distrust. Hallucinations: Auditory (Denies), Visual (Denies) Consciousness: Alert Orientation: Person, Place, Date, Situation Memory: Grossly Intact Estimate Intellectual Function: Average Attention/Concentration & Cognition: Grossly intact Insight: Limited but improving Judgement: Limited but improving Test 07/11/16 16:33 07/11/16 19:10 White Blood Count 5.2th/mm3 (3.8-10.1) Red Blood Count 4.45mil/mm3 (4.40-5.80) Hemoglobin 13.0g/dL (13.8-17.2) Hematocrit 39.1% (41.0-50.0) Mean Corpuscular Volume 87.9fL (81-100) Mean Corpuscular Hemoglobin 29.2pg (27.0-35.0) Mean Corpuscular Hemoglobin Concent 33.2% (32.0-37.0) Red Cell Distribution Width 13.5% (12.3-15.4) Platelet Count 181bil/L (150-400) Neutrophils (%) (Auto) 65.2% (40-74) Lymphocytes (%) (Auto) 19.8% (14-46) Monocytes (%) (Auto) 12.1% (4-12) Eosinophils (%) (Auto) 2.5% (0-5) Basophils (%) (Auto) 0.2% (0-3) Sodium Level 136mEq/L (134-144) Potassium Level 3.6mEq/L (3.5-5.2) Chloride Level 99mEq/L (97-108) Carbon Dioxide Level 22mmol/L (18-29) Blood Urea Nitrogen 17mg/dL (6-24) Creatinine 0.98mg/dL (0.76-1.27) Estimat Glomerular Filtration Rate 87mL/min (>59) Glucose Level 131mg/dL (60-99) Calcium Level 8.4mg/dL (8.5-10.1) Total Bilirubin 0.4mg/dL (0.0-1.2) Aspartate Amino Transf (AST/SGOT) 27U/L (0-50) Alanine Aminotransferase (ALT/SGPT) 26U/L (0-44) Alkaline Phosphatase 63U/L (25-150) Total Protein 5.9g/dL (6.4-8.4) Albumin 3.4g/dL (3.4-5.0) Thyroid Stimulating Hormone (TSH) 0.863uIU/mL (0.450-4.500) Hold [place]ard Top Tube Received (Received) Hold Urine Received (Received) Discharge Medications Discharge Medications Duloxetine (Cymbalta) 30 Mg Capsule.dr 30 MG PO DAILY Prescribed by: АНДРЕЙ JEAN-BAPTISTE MD Fluticasone Propionate (Fluticasone Propionate Nasal) 16 Gm [place].susp 2 SPRAY NASAL DAILY Prescribed by: АНДРЕЙ JEAN-BAPTISTE MD Metoprolol Tartrate (Metoprolol Tartrate) 25 Mg Tablet 25 MG PO BID Prescribed by: АНДРЕЙ JEAN-BAPTISTE MD As needed Hydroxyzine Pamoate (HydrOXYzine Pamoate) 25 Mg Capsule 50 MG PO BID PRN PRN anxiety/agitation/insomnia Prescribed by: АНДРЕЙ JEAN-BAPTISTE MD Zolpidem (Zolpidem) 10 Mg Tablet 10 MG PO HS PRN PRN For Insomnia Prescribed by: АНДРЕЙ JEAN-BAPTISTE MD Additional med instructions Check your blood pressure at your local pharmacy or fire department on a routine basis (at least weekly). If your blood pressure is consistently over 130/80 let your primary provider know. Followup Plan Disposition: No indication for further hospitalization at this time. The patient will be transported to [facility] for treatment and further disposition. The patient verbally consented to take the prescribed medications. The patient verbally expressed understanding of the risks, benefits, alternative treatment options, and risks of not taking the prescribed medication. The patient verbally expressed understanding of the medication instructions, that he will adhere to the prescribed medication, and that he will go to all aftercare scheduled appointments. Follow-up plan Psychiatric follow-up Cycle Analyst [place] on 07/30/16 at 1:[address] [place] [address] Discharge Diet: Heart Healthy Discharge Activity: No restrictions Patient Instructions Should you have any thoughts of harming yourself or others, please call the crisis line, your provider, 911, or go to the nearest Emergency Department. Do not change or discontinue your medications without discussing with your provider. You have been given a prescription for 30 days supply of your medication Андрей Jean-Baptiste MD Jul 20, 2016 20:12
== END 2016-07-20 20:35 | disposition other institution (70) | DRG 885 ==
LOC: SED 14:56 → MHC 07-12 13:37
PROVIDERS: ADMIT Psychiatry & Neurology Psychiatry; ATTEND Psychiatry & Neurology Psychiatry
DX: F33.9 Major depressive disorder, recurrent, unspecified (principal); R45.851 Suicidal ideations; F22 Delusional disorders; F15.10 Other stimulant abuse, uncomplicated; Z59.0 Homelessness; F12.10 Cannabis abuse, uncomplicated; F60.0 Paranoid personality disorder